=== PATIENT | male | born 1935 | race Caucasian/White ===

== ENCOUNTER 2016-11-13 19:46 | Emergency (ER) | payer MEDICARE, OTHER ==
[2016-11-13] MEDS ORDERED: Aspirin 325 MG TAB ONE (20:16)
[2016-11-13] MEDS ORDERED: Ketorolac Tromethamine 30 MG/ML VIAL ONE (20:16)
[2016-11-13] MEDS ORDERED: Ondansetron HCl/PF 4 MG/2 ML Vial ONE ×2 (20:16→23:01)
[2016-11-13 20:23] LABS: PTT 30.1 SEC (22.9-36.1); Prothrombin Time 13.5 SEC (12.0-14.7)
[2016-11-13 20:32] LABS: Magnesium 1.9 mg/dL (1.6-2.6)
[2016-11-13 20:35] LABS: CKMB 1.5 ng/mL (0-6.6); Troponin I Less than 0.010 ng/mL (< 0.028)
[2016-11-13 20:41] LABS: ALT (SGPT) 20 U/L (8-55); AST (SGOT) 23 U/L (5-34); Albumin 4.3 g/dL (3.4-4.8); Alkaline Phosphatase 76 U/L (40-150); Anion Gap 16 mmol/L (10-20); BUN (Urea Nitrogen) 15 mg/dL (8.4-25.7); Bilirubin, Total 1.2 mg/dL (0.2-1.2); Calc. Creatinine Clearance 0 mL/min (70-130); Calcium 8.8 mg/dL (7.8-10.44); Carbon Dioxide 27 mmol/L (23-31); Chloride 100 mmol/L (98-107); Estimated GFR-MDRD 72; Globulin 2.7 g/dL (2.4-3.5); Glucose 120 mg/dL (83-110); Potassium 4.1 mmol/L (3.5-5.1); Sodium 139 mmol/L (136-145)
[2016-11-13 20:47] LABS: #Basophils 0.1 thou/uL (0.0-0.2); #Monocytes 0.9 thou/uL (0.11-0.59); #Neutrophils 8.2 thou/uL (1.40-6.50); %Basophils 0.9 % (0.0-1.0); %Eosinophils 0.3 % (0.0-10.0); %Monocytes 8.5 % (0.0-10.0); %Neutrophils 80.4 % (42.0-75.0); Hemoglobin 14.9 g/dL (14.0-18.0); Large Platelets SLIGHT; MDiff Complete? YES; Mean Corpuscular HGB CONC 32.7 g/dL (32.0-36.0); Mean Corpuscular Hemoglobin 28.2 pg (27.0-31.0); Mean Corpuscular Volume 86.1 fl (80.0-94.0); Mean Platelet Volume 13.2 fL (7.4-10.4); PLT Morphology Comment Appears Adequate; Platelet Count 134 thou/uL (130-400); RBC Distribution Width 12.4 % (11.5-14.5); Red Blood Cell (RBC) Count 5.29 mill/uL (4.70-6.10); White Blood Cell (WBC) Count 10.2 thou/uL (4.8-10.8)
--- NOTE | 2016-11-13 20:56 | RAD ---
FRONTAL RADIOGRAPH CHEST PORTABLE UPRIGHT 11/13/16 COMPARISON: 12/06/15 HISTORY: Chest pain. FINDINGS: Mild increased linear interstitial density noted. No pneumothorax or pleural fluid. No focal consoli dation, or alveolar edema. Heart and mediastinal contours are stable. IMPRESSION: No focal consolidation or alveolar edema. POS: [facility]
--- NOTE | 2016-11-13 22:28 | CT ---
CT ABDOMEN AND PELVIS 11/13/16 COMPARISON: None. HISTORY: Nausea, right upper quadrant pain. TECHNIQUE: Serial axial CT imaging at 5 mm intervals from lung bases through pubic symphysis with IV and oral c ontrast. Coronal reformatted imaging obtained. FINDINGS: The imaged lung bases are grossly unremarkable. No free intraperitoneal air is noted. The liver and spleen appear grossly unremarkable. The gallbladder is mildly distended, measuring 5.3 cm in transverse dimension. There is questionable minimal increased density within the pericholecystic fat superiorly on coronal image 63. A degree o f gallbladder inflammatory change cannot be excluded. No calcified gallstones are seen on this exam. The pancreas and adrenal glands are grossly unremarkable. The kidneys appear unremarkable as well. The prostate gland is mildly prominent. No evidence for small or large bowel obstruction. The appendix is visualized and appears within norm al limits. There is scattered atherosclerotic calcification of the abdominal aorta and its branches. No retroperitoneal, pelvic or mesenteric adenopathy. Mild distal esophageal wall thickening versus underdistention noted. There are degenerative changes seen within the lumbar spine. No acute osseous abnormality is noted. IMPRESSION: 1. Mild gallbladder distention. Questioned minimal stranding of the fat adjacent to the gallbla dder. In the proper clinical setting, gallbladder inflammatory change is a possibility. If this is o f clinical concern, a right upper quadrant ultrasound is suggested. 2. No evidence for bowel obstruction, free intraperitoneal air, or appendicitis. POS: [facility]
[2016-11-13] MEDS ORDERED: Ciprofloxacin 500 MG TAB ONE (23:01)
[2016-11-13] MEDS ORDERED: metroNIDAZOLE 250 MG TAB ONE (23:01)
== END 2016-11-13 23:16 | disposition home or self-care (01) ==
LOC: MADERS 19:46
DX: K81.9 Cholecystitis, unspecified (principal); I48.91 Unspecified atrial fibrillation; I10 Essential (primary) hypertension; Z87.891 Personal history of nicotine dependence
CPT/HCPCS: 71010; 74177; 80053; 82150; 82550; 82553; 83690; 83735; 83880; 84443; 84484; 85025; 85610; 85730; 93005; 94760; 96374; 96375; 96376; J1885; J2270; J2405

== ENCOUNTER 2017-10-10 08:28 | Emergency (ER) | payer MEDICARE ==
[2017-10-10] MEDS ORDERED: Naproxen 500 MG TAB ONE (09:02)
[2017-10-10] MEDS ORDERED: HYDROcodone/Acetaminophen 10/325 mg Tablet ONE (09:02)
--- NOTE | 2017-10-10 10:14 | RAD ---
CERVICAL SPINE 3 VIEWS: HISTORY: Neck and arm pain. FINDINGS: Vertebral body heights are maintained. Posterior elements are absent at the C3-C7 levels. Disk spac e narrowing and retrolisthesis are present at the C3-4, C5-6, and C6-7 levels with prominent osteophy tosis. No acute fracture or dislocation. Calcification overlies the arterial structures. IMPRESSION: 1. Prominent postoperative and degenerative changes cervical spine. No acute osseous abnormalities are demonstrated. 2. Atherosclerosis. POS: [facility]
--- NOTE | 2017-10-10 10:17 | RAD ---
LEFT ELBOW 3 VIEWS: HISTORY: Left elbow pain. FINDINGS: Radiocapitellar alignment is maintained. Mild joint space narrowing. Moderate osteophytosis. No ac jonna fracture, dislocation, or aggressive osseous erosions, or fluid distention of the joint capsule. IMPRESSION: Mild osteoarthritis left elbow. POS: [facility]
== END 2017-10-10 09:40 | disposition home or self-care (01) ==
LOC: MADERS 08:28
DX: M19.022 Primary osteoarthritis, left elbow (principal); I48.91 Unspecified atrial fibrillation; I10 Essential (primary) hypertension; Z87.891 Personal history of nicotine dependence; Z79.899 Other long term (current) drug therapy
CPT/HCPCS: 72040; 93005

== ENCOUNTER 2018-06-13 12:37 | Emergency (ER) | payer MEDICARE, OTHER ==
--- NOTE | 2018-06-13 14:21 | RAD ---
FOUR VIEWS LEFT KNEE: COMPARISON: None. HISTORY: Left knee injury with pain. FINDINGS: Four views of the left knee show no evidence of acute fracture or dislocation. Moderate to severe tr icompartmental joint space narrowing and osteophyte formation is seen consistent with osteoarthritis. There is a moderate knee effusion. Diffuse soft tissue swelling is seen. 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 POS: [facility]
== END 2018-06-13 13:32 | disposition home or self-care (01) ==
LOC: MADERS 12:37
DX: S83.92XA Sprain of unspecified site of left knee, initial encounter (principal); I48.91 Unspecified atrial fibrillation; I10 Essential (primary) hypertension; Z87.891 Personal history of nicotine dependence; Z79.891 Long term (current) use of opiate analgesic; Z79.82 Long term (current) use of aspirin; Z79.899 Other long term (current) drug therapy; X58.XXXA Exposure to other specified factors, initial encounter